=== PATIENT | female | born 1965 | race Caucasian/White ===

== ENCOUNTER 2019-03-18 15:05 | Outpatient (CLI) | payer OTHER ==
--- NOTE | 2019-03-18 17:15 | Mammography Report ---
Reason: SCREENING MAMMO Procedure Date: 03/18/2019 Accession Number: [id number] / [id number] Procedure: SHELLIE - Screening Mammo w/Matthew CPT Code: Final Report FULL RESULT: EXAM: Screening Mammo w/Matthew DATE: 03/18/2019 4:00 PM CLINICAL HISTORY: The patient is an asymptomatic 53-year-old female presenting for screening mammography. No reported personal nor family history of breast cancer. Nulliparous. TECHNIQUE: (B) - Bilateral CC and MLO views were obtained. COMPARISON: None available. PARENCHYMAL PATTERN: (A) - The breasts demonstrate scattered fibroglandular densities bilaterally. FINDINGS: RIGHT BREAST: There are no suspicious masses, calcifications, or areas of distortion. LEFT BREAST: There is an isodense mass in the 9:00 middle position of the left breast; reference 3-D slices 46 (MLO) and 19 (CC). Recommend targeted diagnostic evaluation. The remainder of the parenchymal pattern is unremarkable. IMPRESSION: RIGHT BREAST: Negative examination. BI-RADS Category 1. LEFT BREAST: Incomplete examination. BI-RADS category 0. RECOMMENDATION: Recommend targeted diagnostic evaluation of the left breast to include mammography and ultrasound, if indicated. BI-RADS CATEGORY: (0) - Incomplete Examination - need additional evaluation. STANDARD QUALIFYING STATEMENTS: A negative or benign imaging report should not preclude biopsy if clinically suspicious findings are present. Dense breasts may obscure an underlying neoplasm. This examination was reviewed with the aid of 3D breast imaging (tomosynthesis).
== END 2019-03-18 15:06 | disposition home or self-care (01) ==
LOC: DI 15:05
PROVIDERS: ATTEND Nurse Practitioner Acute Care
DX: Z12.31 Encounter for screening mammogram for malignant neoplasm of breast (principal)
CPT/HCPCS: 77063; 77067

== ENCOUNTER 2019-05-13 14:06 | Outpatient (CLI) | payer OTHER ==
--- NOTE | 2019-05-13 15:23 | Ultrasound Report ---
Reason: ABN MAMMO- LEFT BREAST MASS Procedure Date: 05/13/2019 Accession Number: [id number] / [id number] Procedure: US - Breast Unilateral Limited CPT Code: Final Report FULL RESULT: EXAM: Diagnostic Dig LT, Breast Unilateral Limited DATE: 05/13/2019 2:42 PM CLINICAL HISTORY: Follow-up abnormal mammogram 03/18/2023 left breast nodule. COMPARISON: 03/18/2019 MAMMOGRAM: TECHNIQUE: (L) - Left. CC and MLO views were obtained. PARENCHYMAL PATTERN: (A) - The breasts demonstrate scattered fibroglandular densities bilaterally. FINDINGS: Nodular density left breast 8:00 position approximately 4 cm from the nipple persists on additional views. LEFT BREAST ULTRASOUND: TECHNIQUE: Real time scanning by the entry level account executive with saved static images reviewed. FINDINGS: Corresponding to the mammographic finding 8:30 position 4 cm from the nipple is a small cyst or cyst cluster measuring 3 x 3 x 4 mm. IMPRESSION: Probably Benign. BI-RADS category 3. RECOMMENDATION: (6MOS) - Recommend 6 month follow-up exam. Left breast BI-RADS CATEGORY: (3) - Probably Benign. STANDARD QUALIFYING STATEMENTS: 1. This examination was not reviewed with the aid of Computer-Aided Detection (CAD). 2. A negative or benign imaging report should not preclude biopsy if clinically suspicious findings are present. 3. Dense breasts may obscure an underlying neoplasm. 4. This examination was reviewed with the aid of 3D breast imaging (tomosynthesis).
== END 2019-05-13 14:07 | disposition home or self-care (01) ==
LOC: DI 14:06
PROVIDERS: ATTEND Nurse Practitioner Acute Care
DX: N60.12 Diffuse cystic mastopathy of left breast (principal)
CPT/HCPCS: 76642

== ENCOUNTER 2019-09-11 10:16 | Outpatient (CLI) | payer OTHER | END 2019-09-11 10:17 | disposition home or self-care (01) | LOC: DI 10:16 | PROVIDERS: ATTEND Nurse Practitioner Acute Care | DX: I25.84 Coronary atherosclerosis due to calcified coronary lesion (principal) | CPT/HCPCS: 93306 ==

== ENCOUNTER 2019-09-23 10:13 | Outpatient (CLI) | payer OTHER ==
--- NOTE | 2019-09-23 11:30 | MRI Report ---
PROCEDURE: Shoulder LT W/O INDICATIONS: LT SHOULDER PAIN TECHNIQUE: Noncontrast oblique coronal T2 fast spin echo with fat saturation, oblique sagittal T1 spin echo and T2 fast spin echo with fat saturation, axial T1 spin echo and T2 fast spin echo with fat saturation t hrough the shoulder. COMPARISON: None. FINDINGS: Image quality: Excellent. Rotator cuff: Tendinosis and moderate grade articular and bursal surface partial-thickness tear invol ving distal supraspinatus at its insertion on humeral head is seen extending to musculotendinous junc tion. Distal infraspinatus tendinosis and low-grade articular surface partial-thickness tear is also seen. Distal subscapularis tendon is intact. No significant rotator cuff muscle atrophy on sagittal i mages. Bones and bursae: No bone marrow contusions or fractures. Gvka-wl-mnlrshde acromioclavicular joint a nd glenohumeral joint osteoarthritic changes are noted. There is small amount of joint fluid and suba cromial subdeltoid bursal fluid. Capsule and soft tissues: In the absence of intra-articular contrast, there is suggestion of superio r anterior labral tear at 1 to 2:00 position. The glenohumeral ligaments appear intact. The long hea d of the biceps tendinosis is seen. The rotator interval appears normal, without fibrosis. The aris cohumeral ligament is normal in thickness. IMPRESSION: 1. Tendinosis and moderate grade articular and bursal surface partial-thickness tear involving distal supraspinatus extending to musculotendinous junction. Distal infraspinatus tendinosis and low-grade articular surface partial-thickness tear. No full-thickness rotator cuff tendon rupture. 2. Mild to moderate acromioclavicular joint and glenohumeral joint osteoarthritis. Small amount of jennifer int fluid and subacromial subdeltoid bursal fluid. 3. Suggestion of superior anterior labral tear at 1 to 2:00 position. Proximal intra-articular portio n of long head of biceps tendinosis. Reviewed by: Gee Galeano MD on 09/23/2019 11:29 AM PDT Approved by: Gee Galeano MD on 09/23/2019 11:29 AM PDT Station ID: [id number]
== END 2019-09-23 10:14 | disposition home or self-care (01) ==
LOC: DI 10:13
PROVIDERS: ATTEND Nurse Practitioner Acute Care
DX: M75.112 Incomplete rotator cuff tear or rupture of left shoulder, not specified as traumatic (principal); M19.012 Primary osteoarthritis, left shoulder; M75.82 Other shoulder lesions, left shoulder

== ENCOUNTER 2020-05-13 08:28 | Outpatient (CLI) | payer OTHER ==
--- NOTE | 2020-05-16 12:40 | Ultrasound Report ---
LIMITED ULTRASOUND OF LEFT BREAST: 05/13/2020 CLINICAL: 6 month follow-up of cysts. Comparison is made to exams dated: 05/13/2020 mammogram, 05/13/2019 mammogram, 05/13/2019 ultrasound, a nd 03/18/2019 mammogram - [facility]. Ultrasound of the left breast 7-9 o'clock region was performed. No sonographic abnormality demonstrated. Previously seen cluster of cysts is no longer demonstrated. IMPRESSION: NEGATIVE There is no sonographic evidence of malignancy. Return to annual mammogram screening schedule is rec ommended. This exam was interpreted at Station ID: [id number]. Electronically Signed By: Raphael Carrillo M.D. jr/:05/13/2020 09:25:37 Ultrasound BI-RADS: 1 Negative BI-RADS CATEGORY: (1) - 1 RECOMMENDATION: (ANNUAL) - Recommend routine annual screening mammography. [id number] return to screening LATERALITY: (B)
--- NOTE | 2020-05-16 12:40 | Mammography Report ---
BILATERAL DIGITAL DIAGNOSTIC MAMMOGRAM 3D/2D: 05/13/2020 CLINICAL: 6 month follow-up of cysts. Comparison is made to exams dated: 05/13/2019 mammogram, 03/18/2019 mammogram, and 05/13/2019 [facility] department - [facility]. There are scattered fibroglandular elements in both breasts. No significant masses, calcifications, or other findings are seen in either breast. IMPRESSION: INCOMPLETE: NEEDS ADDITIONAL IMAGING EVALUATION No suspicious mammographic finding demonstrated. An ultrasound is recommended to document stability i n the previously identified left breast cysts, and has been scheduled to immediately follow this exam . This exam was interpreted at Station ID: [id number]. NOTE: For mammograms, a report in lay terms will be sent to the patient. Approximately 15% of breast malignancies will not be visualized mammographically. In the management of a palpable breast mass, a negative mammogram must not discourage biopsy of a clinically suspicious lesion. Electronically Signed By: Raphael Carrillo M.D. jr/:05/13/2020 09:05:45 ACR BI-RADS Category 0: Incomplete 3340F PARENCHYMAL PATTERN: (A) - The breast(s) demonstrate(s) scattered fibroglandular densities. BI-RADS CATEGORY: (0) - 0 Ultrasound [id number] Immediate follow-up LATERALITY: (B)
== END 2020-05-13 08:29 | disposition home or self-care (01) ==
LOC: DI 08:28
PROVIDERS: ATTEND Nurse Practitioner Acute Care
DX: N60.02 Solitary cyst of left breast (principal)

== ENCOUNTER 2020-10-17 15:00 | Outpatient (CLI) | payer OTHER ==
--- NOTE | 2020-10-17 16:03 | XRAY Report ---
PROCEDURE: Shoulder 3 View LT INDICATIONS: L SHOULDER PX TECHNIQUE: 4 views of the shoulder were acquired. COMPARISON: None. FINDINGS: Bones: No fractures or dislocations. Moderate acromioclavicular joint osteoarthritic changes are see n. No suspicious bony lesions. Visualized ribs appear intact. Soft tissues: No suspicious soft tissue calcifications. IMPRESSION: Moderate acromioclavicular joint osteoarthritis. No shoulder fracture or dislocation. Reviewed by: Gee Galeano MD on 10/17/2020 4:02 PM PDT Approved by: Gee Galeano MD on 10/17/2020 4:02 PM PDT Station ID: [id number]
== END 2020-10-17 23:59 | disposition home or self-care (01) ==
LOC: DI.N 15:00
PROVIDERS: ATTEND Physician Assistant
DX: M19.012 Primary osteoarthritis, left shoulder (principal)

== ENCOUNTER 2022-12-29 08:00 | Outpatient (CLI) | payer OTHER | END 2022-12-29 23:59 | disposition home or self-care (01) | LOC: LAB.S 08:00 | PROVIDERS: ATTEND Physician Assistant | DX: R31.9 Hematuria, unspecified (principal) | CPT/HCPCS: 87086 ==